=== PATIENT | male | born 1940 | race Caucasian/White ===

== ENCOUNTER 2019-02-03 02:52 | Inpatient (IN) | payer MEDICARE, OTHER ==
[2019-02-03] MEDS ORDERED: DILTIAZEM 125 MG in SODIUM CHLORIDE 0.9% 100 ML IV SCH (04:30)
[2019-02-03] MEDS ORDERED: SODIUM CHLORIDE 0.9% 100 ML BAG ONE (04:30)
[2019-02-03] MEDS ORDERED: HEPARIN SODIUM,PORCINE 5,000 UNIT/ML 1 ML VIAL ONE (04:30)
[2019-02-03] MEDS ORDERED: DILTIAZEM 125 MG/25 ML VIAL IV ONE (04:30)
[2019-02-03] MEDS ORDERED: NALOXONE 0.4 MG/ML 1 ML VIAL IV PRN (06:44)
[2019-02-03] MEDS ORDERED: HEPARIN SODIUM,PORCINE 5,000 UNIT/ML 1 ML VIAL IV PRN (06:49)
[2019-02-03] MEDS ORDERED: HEPARIN SODIUM,PORCINE 5,000 UNIT/ML 1 ML VIAL IV ONE (06:49)
--- NOTE | 2019-02-03 06:52 | P.HPIM ---
History of Present Illness H&P Date: 02/03/19 The patient is a 78-year-old male with a PMH of hypertension and hyperlipidemia who presented to the ED as a transfer from [facility] for sudden onset of A. fib with RVR. The patient reports no prior history of A. fib and notes that yesterday when he woke up in the morning at around 7 AM, he noticed mild dizziness though didn't think much of it. He continued to have intermittent dizziness and palpitations throughout the day which then worsened closer to bedtime at which time he asked his retired RN to auscultate his chest, at which time they decided to activate EMS. Upon presentation at [facility], the patient was noted to be in A. fib with RVR at a rate of 144. He was subsequently started on Cardizem and heparin infusions and was transferred to [place] emergency room. At time of interview, the patient reported that his symptoms had resolved and he was free of active complaints. He denied chest pain, shortness of breath, nausea, vomiting, diaphoresis, or dizziness. He also denied abdominal pain, fever, chills, cough, or diarrhea. He underwent an extensive evaluation in the emergency room with an EKG which revealed A. fib at 72 bpm. Laboratory evaluation revealed a WBC count of 11.7, hemoglobin of 15.2, sodium 140, potassium 4.1, urine 18, creatinine 0.82, troponin less than 0.012, BNP 132, TSH 1.83, free T4 1 0.07, alkaline phosphatase 83, CK 175, and AST 24. The patient is being admitted to the medical service for management of newly diagnosed Afib with RVR. Review of Systems Pertinent positives and negatives as discussed in HPI, a complete review of systems was performed and all other systems are negative. Past Medical History Past Medical History: Hyperlipidemia, Hypertension Medications and Allergies Home Medications Medication Instructions Recorded Confirmed Type Cholecalciferol [Vitamin D3 (25 1,000 unit PO DAILY 02/03/19 02/03/19 History Mcg = 1000 Iu)] Metoprolol Tartrate 12.5 mg PO BID 02/03/19 02/03/19 History Rosuvastatin [Crestor] 10 mg PO HS 02/03/19 02/03/19 History Ubidecarenone [Co Q-10] 100 mg PO DAILY 02/03/19 02/03/19 History amLODIPine [Norvasc] 5 mg PO DAILY 02/03/19 02/03/19 History Allergies Allergy/AdvReac Type Severity Reaction Status Date / Time No Known Allergies Allergy Verified 02/03/19 07:36 Physical Exam Vitals: Intake and Output 02/02/19 02/02/19 02/03/19 14:59 22:59 06:59 Other: Weight 80.286 kg General: non toxic, no distress, appears at stated age, overweight Derm: no unusual rashes/lesions no unusual ecchymoses, warm, dry Head: atraumatic, normocephalic, symmetric Eyes: EOMI, no lid lag, anicteric sclera, pupils equal round reactive to light ENT: Nose and ears atraumatic, no thrush, no pharyngeal erythema Neck: No thyromegaly, no cervical lymphadenopathy, trachea midline, supple Mouth: no lip lesion, mucus membranes moist Cardiovascular: Irregularly irregular, S1-S2 appreciated, no murmur, positive posterior tibial pulse bilateral, no edema, capillary refill less than 2 seconds Lungs: CTA bilateral, no rhonchi, no rales , no accessory muscle use Abdominal: soft, nontender to palpation, no guarding, no appreciable organomegaly, normal bowel sounds Ext: no gross muscle atrophy, muscle strength 5 out of 5 in all 4 extremities grossly, no contractures, Neuro: CN II-XI grossly intact, light touch intact all 4 extremities, finger to nose within normal limits, Psych: Alert, oriented, appropriate affect Assessment and Plan Plan: New-onset A. fib with RVR -Currently rate controlled with Cardizem infusion -Start patient on Lopressor -Continue with heparin infusion -Cardiac monitoring -Cardiology consult -Echocardiogram Chronic conditions: HTN, HLD -C/w home meds DVT prophylaxis -Heparin infusion The patient is admitted with an anticipated greater than 2 midnight stay for evaluation of Afib with rvr CODE STATUS: Full Code Discussed with: Patient Anticipated discharge date: 2-[address]: Home A total of 40 minutes was spent on the care of this complex patient more than 50% of the time was spent in counseling and care coordination.
[2019-02-03] MEDS ORDERED: HEPARIN SOD,PORK IN 0.45% NACL 25,000 UNIT in 0.45% NACL 1 250ML.BAG IV SCH (07:00)
[2019-02-03 08:50] LABS: ALT 33 U/L (21-72); AST 24 U/L (17-59); African American GFR (CKD) >90 (>60 ml/min/1.73 sqM); Albumin 4.1 g/dL (3.5-5.0); Alkaline Phosphatase 83 U/L (38-126); Anion Gap 6 mmol/L; Blood Urea Nitrogen 18 mg/dL (9-20); Calcium 9.3 mg/dL (8.4-10.2); Carbon Dioxide 27 mmol/L (22-30); Chloride 107 mmol/L (98-107); Creatine Kinase 175 U/L (55-170); Glucose 108 mg/dL (74-99); Magnesium 2.2 mg/dL (1.6-2.3); Non-African American GFR(CKD) 84 (>60 ml/min/1.73 sqM); Potassium 4.1 mmol/L (3.5-5.1); Sodium 140 mmol/L (137-145); T4, Free (Free Thyroxine) 1.07 ng/dL (0.78-2.19); Total Bilirubin 0.4 mg/dL (0.2-1.3)
[2019-02-03 08:56] LABS: INR 0.9 (<1.2); Partial Thromboplastin Time 31.3 sec (22.0-30.0); Prothrombin Time 9.9 sec (9.0-12.0)
[2019-02-03 09:20] LABS: Basophils # (A) 0.1 k/uL (0-0.2); Basophils % (A) 1 %; Eosinophils # (A) 0.3 k/uL (0-0.7); Eosinophils % (A) 2 %; HGB 15.2 gm/dL (13.0-17.5); Lymphocytes # (A) 4.8 k/uL (1.0-4.8); Lymphocytes % (A) 41 %; MCH 31.9 pg (25.0-35.0); MCHC 33.9 g/dL (31.0-37.0); MCV 94.1 fL (80.0-100.0); Mean Platelet Volume 6.1; Monocytes # (A) 0.6 k/uL (0-1.0); Monocytes % (A) 5 %; Neutrophils # (A) 5.5 k/uL (1.3-7.7); Neutrophils % (A) 47 %; Platelet Count 261 k/uL (150-450); RBC 4.78 m/uL (4.30-5.90); RDW 12.8 % (11.5-15.5); WBC 11.7 k/uL (3.8-10.6)
[2019-02-03] MEDS: METOPROLOL TARTRATE 25 MG TAB PO SCH ×2 (09:30→20:11)
--- NOTE | 2019-02-03 10:12 | ECHOF ---
Referral Reason:Afib with RVR MEASUREMENTS -------- HEIGHT: 172.7 cm WEIGHT: 80.3 kg BP: RVIDd: 3.0 cm (< 3.3) IVSd: 1.4 cm (0.6 - 1.1) LVIDd: 4.1 cm (3.9 - 5.3) LVPWd: 1.4 cm (0.6 - 1.1) IVSs: 1.7 cm LVIDs: 3.0 cm LVPWs: 2.0 cm LA Diam: 3.4 cm (2.7 - 3.8) LAESV Index (A-L): 26.35 ml/m Ao Diam: 3.1 cm (2.0 - 3.7) AV Cusp: 1.9 cm (1.5 - 2.6) LA Diam: 3.9 cm (2.7 - 3.8) MV EXCURSION: 22.213 mm (> 18.000) MV EF SLOPE: 105 mm/s (70 - 150) EPSS: 0.6 cm MV E Esteban: 0.78 m/s MV DecT: 135 ms MV A Esteban: 0.01 m/s MV E/A Ratio: 133.89 RAP: 5.00 mmHg RVSP: 13.33 mmHg TAPSE: 19.13 mm FINDINGS -------- Atrial fibrillation. This was a technically good study. The left ventricular size is normal. There is moderate concentric left ventricular hypertrophy. O verall left ventricular systolic function is normal with, an EF between 55 - 60 %. Left ventricular fillimg pressure cannot be estimated due to Atrial fibrillation. The right ventricle is normal in size. The left atrial size is normal. The right atrial size is normal. The aortic valve is trileaflet, and appears structurally normal. No aortic stenosis or regurgitation. Mild mitral regurgitation is present. Mild tricuspid regurgitation present. Right ventricular systolic pressure is normal at < 35 mmHg. There is no evidence of pulmonary hypertension. There is no pulmonic regurgitation present. The aortic root size is normal. There is no pericardial effusion. CONCLUSIONS -------- 1. Atrial fibrillation. 2. This was a technically good study. 3. The left ventricular size is normal. 4. There is moderate concentric left ventricular hypertrophy. 5. Overall left ventricular systolic function is normal with, an EF between 55 - 60 %. 6. Left ventricular fillimg pressure cannot be estimated due to Atrial fibrillation. 7. The right ventricle is normal in size. 8. The left atrial size is normal. 9. The right atrial size is normal. 10. The aortic valve is trileaflet, and appears structurally normal. No aortic stenosis or regurgitat ion. 11. Mild mitral regurgitation is present. 12. Mild tricuspid regurgitation present. 13. Right ventricular systolic pressure is normal at < 35 mmHg. 14. There is no evidence of pulmonary hypertension. 15. There is no pulmonic regurgitation present. 16. The aortic root size is normal. 17. There is no pericardial effusion. STRUCTURAL METAL WORKER: Eleanor Perdomo RDCS
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
[2019-02-03] MEDS: APIXABAN 5 MG TAB PO SCH ×2 (11:27→20:10)
--- NOTE | 2019-02-03 18:27 | P.PN ---
Progress Note - Text Progress Note Date: 02/03/19 (Delayed charting seen at 10:15) Hospitalist Interval Note Patient seen and examined at bedside. He reports that he is feeling much better. No more dizziness or shortness of breath. No chest pain. Discussed risks versus benefits of long-term anticoagulation and need for medications. He is in agreement. We also discussed his chadsvas Scor 2., Vital signs reviewed General: no distress, appears at stated age Derm: warm, dry Head: atraumatic, normocephalic, symmetric Eyes: EOMI, no lid lag, anicteric sclera Mouth: no lip lesion, mucus membranes moist Cardiovascular: S1S2 irreg, no murmur, positive posterior tibial pulse bilateral, Lungs: CTA bilateral, no rhonchi, no rales , no accessory muscle use Abdominal: soft, nontender to palpation, no guarding, no appreciable organomegaly Ext: no gross muscle atrophy, no edema, no contractures Neuro: CN II-XI grossly intact, no focal neuro deficits Psych: Alert, oriented, appropriate affect Assessment/Plan: Onset A. fib with rapid ventricular response -Discussed with nursing transitioned off of Cardizem drip, has been started on Lopressor already and received first dose -Transition off heparin drip and start Eliquis -Cardiology recommendations appreciated -Echocardiogram with ejection fraction 55-60%, moderate LVH -We'll need outpatient obstructive sleep apnea evaluation. Per snores significantly. Hypertension -controlled -Continue with Lopressor -Hold Norvasc -Follow blood pressures Dyslipidemia -Resume statin This is an update note for patient , for full note on 02/03 see H and P . There is no charge associated with this note.
[2019-02-03] MEDS ORDERED: ATORVASTATIN 20 MG TAB PO SCH (21:00)
[2019-02-04 06:28] LABS: Basophils # (A) 0.1 k/uL (0-0.2); Basophils % (A) 1 %; Eosinophils # (A) 0.3 k/uL (0-0.7); Eosinophils % (A) 2 %; HCT 45.1 % (39.0-53.0); HGB 14.9 gm/dL (13.0-17.5); Lymphocytes # (A) 3.2 k/uL (1.0-4.8); Lymphocytes % (A) 29 %; MCH 31.6 pg (25.0-35.0); MCV 95.6 fL (80.0-100.0); Mean Platelet Volume 6.8; Monocytes # (A) 0.7 k/uL (0-1.0); Monocytes % (A) 6 %; Neutrophils # (A) 6.7 k/uL (1.3-7.7); Neutrophils % (A) 59 %; Platelet Count 258 k/uL (150-450); RBC 4.71 m/uL (4.30-5.90); RDW 12.7 % (11.5-15.5); WBC 11.3 k/uL (3.8-10.6)
[2019-02-04] MEDS: APIXABAN 5 MG TAB PO SCH (08:09)
[2019-02-04] MEDS: METOPROLOL TARTRATE 25 MG TAB PO SCH (08:09)
[2019-02-04 08:14] VITALS: BP 142/92; PULSE 69; RESP 18; TEMP 96.4
[2019-02-04] MEDS ORDERED: amLODIPine 5 MG TAB PO SCH (10:00)
--- NOTE | 2019-02-04 10:11 | PN ---
PROGRESS NOTE Mr. Hatch is a 78-year-old male with no prior documented history of coronary artery disease who presented with symptoms of palpitation and dizziness, was noted to be in atrial fibrillation. He is back in sinus mechanism at this time. He is feeling better. His breathing is stable. He denies any dizziness. No palpitation. He denies any nausea. He had underwent an echocardiogram revealed preserved left ventricular size and systolic function with mild mitral and tricuspid regurgitation and no evidence of pulmonary hypertension. He continues to be at this time on Eliquis 5 mg twice a day, Lipitor 20 mg daily, metoprolol tartrate 25 mg twice a day. PHYSICAL EXAMINATION: Blood pressure 142/92 with the heart rate in the 60s. LUNGS: Clear. HEART: Regular rate and rhythm. S1, S2. No S3. No rub. ABDOMEN: Soft, nontender. EXTREMITIES: No edema. LAB DATA: Lab data revealed a troponin less than 0.012. TSH and free T4 normal. IMPRESSION: 1. Paroxysmal atrial fibrillation, back in normal sinus rhythm. 2. Hyperlipidemia. 3. Hypertension. RECOMMENDATION: Patient should be able to be discharged home today and he will follow as an outpatient to see if he has any further episode of atrial fibrillation. I have discussed those findings with the patient and his . I have discussed with him the importance of decreasing his caffeine and alcohol intake and he will discuss the issue of obstructive sleep apnea with Dr. Rodriguez as an outpatient. MMODL / IJN: [id number] /
--- NOTE | 2019-02-04 10:41 | P.DS ---
Providers Date of admission: 02/03/19 03:20 Expected date of discharge: 02/04/19 Attending physician: Swetha Kruger MD Consults: 02/03/19 06:46 Consult Physician Routine Consulting Provider: Mario Alberto Junior Consult Reason/Comments: Afib with Rvr Do you want consulting provider notified?: Yes Primary care physician: Harshil Rodriguez Hospital Course: Discharge Diagnosis: New onset paroxysmal A. Fib, now back in normal sinus rhythm Possible KIKO HTN HLD Elevated troponin, lab abnormality not reflective of [place] Hospital Course: Patient is a 78-year-old male past medical history of hypertension and dyslipidemia who initially presented to [facility] with complaints of dizziness and rapid heart rate. At [place] was found to be in A. fib with rapid ventricular response. He was started on a heparin drip and Cardizem infusions and was subsequently transferred [place] for cardiology evaluation. His metoprolol was restarted was able to come off Cardizem drip. He was seen by cardiology. He underwent an echocardiogram which showed preserved ejection fraction with moderate LVH. He converted back to normal sinus rhythm. His heparin drip was transitioned Eliquis. He was cleared by cardiology for discharge. He did have one mildly elevated troponin on arrival which was likely reflective of his atrial fibrillation and not consistent with acute coronary syndrome. He'll follow-up with Dr. Rodriguez in 1-2 days. I have also suggested an evaluation for sleep apnea patient does have snoring per his . Will also follow-up with Dr. Dolan in 2 weeks. Patient was initially admitted as inpatient but improved faster than anticipated. Patient seen and examined at bedside. No chest pain, shortness of breath, dizziness or palpitations. Vital signs reviewed and stable. General: non toxic, no distress, appears at stated age Derm: warm, dry Head: atraumatic, normocephalic, symmetric Eyes: EOMI, no lid lag, anicteric sclera Mouth: no lip lesion, mucus membranes moist Cardiovascular: S1S2 reg, no murmur, positive posterior tibial pulse bilateral, Lungs: CTA bilateral, no rhonchi, no rales , no accessory muscle use Ext: no gross muscle atrophy, no edema, no contractures Psych: Alert, oriented, appropriate affect A total of 25 minutes of time were spent preparing this complex discharge summary . Patient Condition at Discharge: Stable Plan - Discharge Summary Discharge Rx Participant: No New Discharge Prescriptions: New Apixaban [Eliquis] 5 mg PO BID #60 tab Continue amLODIPine [Norvasc] 5 mg PO DAILY Cholecalciferol [Vitamin D3 (25 Mcg = 1000 Iu)] 1,000 unit PO DAILY Rosuvastatin [Crestor] 10 mg PO HS Ubidecarenone [Co Q-10] 100 mg PO DAILY Metoprolol Tartrate [Lopressor] 25 mg PO BID Discharge Medication List Cholecalciferol [Vitamin D3 (25 Mcg = 1000 Iu)] 1,000 unit PO DAILY 02/03/19 [History] Metoprolol Tartrate [Lopressor] 25 mg PO BID 02/03/19 [History] Rosuvastatin [Crestor] 10 mg PO HS 02/03/19 [History] Ubidecarenone [Co Q-10] 100 mg PO DAILY 02/03/19 [History] amLODIPine [Norvasc] 5 mg PO DAILY 02/03/19 [History] Apixaban [Eliquis] 5 mg PO BID #60 tab 02/04/19 [Rx] Follow up Appointment(s)/Referral(s): Harshil Rodriguez MD [Primary Care Provider] - 1 Week Reyes Dolan MD [STAFF PHYSICIAN] - 2 Weeks Activity/Diet/Wound Care/Special Instructions: Activity: as tolerated Diet: heart healthy diet Special Instructions: Consider evaluation for sleep apnea with Dr. Rodriguez Decrease alcohol and caffeine exposure
== END 2019-02-04 12:14 | disposition home or self-care (01) | DRG 310 ==
LOC: EC 02:52 → 3SCARD 03:20
PROVIDERS: ADMIT Internal Medicine; ATTEND Internal Medicine
DX: I48.0 Paroxysmal atrial fibrillation (principal); E78.5 Hyperlipidemia, unspecified; H91.90 Unspecified hearing loss, unspecified ear; I10 Essential (primary) hypertension; M19.041 Primary osteoarthritis, right hand; M19.042 Primary osteoarthritis, left hand; Z79.01 Long term (current) use of anticoagulants; Z79.899 Other long term (current) drug therapy; Z82.49 Family history of ischemic heart disease and other diseases of the circulatory system; Z98.42 Cataract extraction status, left eye; Z98.41 Cataract extraction status, right eye; Z96.1 Presence of intraocular lens; G47.33 Obstructive sleep apnea (adult) (pediatric); R79.89 Other specified abnormal findings of blood chemistry
CPT/HCPCS: 80053; 82550; 83735; 83880; 84439; 84443; 84484; 85025; 85610; 85730; 93306; 94760; 96365; 96366; 99285

== ENCOUNTER 2019-02-16 19:13 | Inpatient (IN) | payer MEDICARE, OTHER ==
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
[2019-02-16] MEDS ORDERED: METOPROLOL TARTRATE 5 MG/5 ML VIAL IVP STA (21:04)
[2019-02-16] MEDS ORDERED: NITROGLYCERIN SL TABS 0.4 MG TAB SUBLINGUAL PRN (21:04)
[2019-02-16] MEDS: METOPROLOL TARTRATE 25 MG TAB PO SCH (21:55)
[2019-02-16] MEDS: SODIUM CHLORIDE 0.9% 1,000 ML IV SCH (21:59)
[2019-02-16] MEDS ORDERED: DEXTROSE 5% IN WATER 100 ML with AMIODARONE 150 MG IV ONE (22:30)
[2019-02-16] MEDS ORDERED: AMIODARONE 360 MG in DEXTROSE 5% IN WATER 200 ML IV ONE ×2 (22:30)
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
[2019-02-17] MEDS ORDERED: HEPARIN SOD,PORK IN 0.45% NACL 25,000 UNIT in 0.45% NACL 1 250ML.BAG IV SCH (01:15)
[2019-02-17] MEDS: SODIUM CHLORIDE 0.9% 1,000 ML IV SCH ×2 (06:12→17:38)
[2019-02-17 06:27] LABS: HCT 45.4 % (39.0-53.0); HGB 14.9 gm/dL (13.0-17.5); MCH 31.7 pg (25.0-35.0); MCHC 32.9 g/dL (31.0-37.0); MCV 96.3 fL (80.0-100.0); Mean Platelet Volume 7.9; Platelet Count 248 k/uL (150-450); RBC 4.71 m/uL (4.30-5.90); RDW 12.9 % (11.5-15.5); WBC 11.8 k/uL (3.8-10.6)
[2019-02-17 06:36] LABS: African American GFR (CKD) >90 (>60 ml/min/1.73 sqM); Anion Gap 9 mmol/L; Blood Urea Nitrogen 11 mg/dL (9-20); Calcium 9.1 mg/dL (8.4-10.2); Carbon Dioxide 25 mmol/L (22-30); Chloride 106 mmol/L (98-107); Glucose 102 mg/dL (74-99); Non-African American GFR(CKD) >90 (>60 ml/min/1.73 sqM); Sodium 140 mmol/L (137-145)
[2019-02-17] MEDS ORDERED: AMIODARONE 300 MG in DEXTROSE 5% IN WATER 250 ML IV SCH ×2 (08:00)
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
[2019-02-17] MEDS: amLODIPine 5 MG TAB PO SCH (08:39)
[2019-02-17] MEDS: METOPROLOL TARTRATE 25 MG TAB PO SCH ×2 (08:44→20:48)
[2019-02-17] MEDS ORDERED: ASPIRIN 325 MG TAB PO SCH (09:00)
[2019-02-17] MEDS ORDERED: APIXABAN 5 MG TAB PO SCH (09:00)
[2019-02-17] MEDS ORDERED: ALPRAZolam 0.25 MG TAB PO PRN (09:48)
[2019-02-17] MEDS ORDERED: ATORVASTATIN 80 MG TAB PO STA (09:48)
[2019-02-17] MEDS ORDERED: NITROGLYCERIN SL TABS 0.4 MG TAB SUBLINGUAL PRN (09:48)
[2019-02-17] MEDS ORDERED: ASPIRIN 325 MG TAB PO STA (09:48)
[2019-02-17] MEDS ORDERED: SODIUM CHLORIDE 0.9% 1,000 ML in EMPTY BAG 1 BAG IV ONE (09:48)
[2019-02-17] MEDS ORDERED: ALPRAZolam 0.5 MG TAB PO PRN (09:48)
[2019-02-17 10:51] LABS: Cholesterol 134 mg/dL (<200); HDL Cholesterol 33 mg/dL (40-60); LDL Cholesterol,Calculated 77 mg/dL (0-99); Triglycerides 118 mg/dL (<150)
[2019-02-17] MEDS ORDERED: HEPARIN SODIUM 1,000 UN/ML (10ML VL) ONE (12:55)
[2019-02-17] MEDS ORDERED: VERAPAMIL 2.5 MG/ML 2 ML AMP ONE (12:55)
[2019-02-17] MEDS ORDERED: LIDOCAINE 1% INJ 10MG/ML (20 ML MDV) ONE (12:55)
[2019-02-17] MEDS ORDERED: fentaNYL (PF) 50 MCG/ML 2 ML AMP ONE (12:55)
[2019-02-17] MEDS ORDERED: SODIUM CHLORIDE 0.9% 500 ML 500 ML IV ONE (13:00)
[2019-02-17] MEDS ORDERED: IV FLUID CONTINUATION 1,000 ML IV ONE (13:00)
[2019-02-17] MEDS ORDERED: fentaNYL (PF) 50 MCG/ML 2 ML AMP IV ONE (13:15)
[2019-02-17] MEDS ORDERED: LIDOCAINE 1% INJ 10MG/ML (20 ML MDV) SQ ONE (13:16)
[2019-02-17] MEDS ORDERED: VERAPAMIL SYRINGE (5 MG/10 ML) INTRAARTER ONE (13:17)
[2019-02-17] MEDS ORDERED: HEPARIN SODIUM 1,000 UN/ML (10ML VL) IV ONE (13:25)
[2019-02-17] MEDS ORDERED: IOPAMIDOL-370 125ML BTL INJ ONE (13:28)
[2019-02-17] MEDS ORDERED: RX INFO: IV CONTRAST WAS GIVEN 1 EACH MISC MISCELLANE PRN (13:37)
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
[2019-02-17] MEDS ORDERED: SODIUM CHLORIDE 0.9% 1,000 ML IV SCH (13:45)
--- NOTE | 2019-02-17 14:47 | P.PRLE ---
RE: Jhonatan Hatch Dear Harshil Jhonatan was admitted with SVT with left bundle branch block aberrancy This was adenosine sensitive I will schedule him for an EP study and possible radiofrequency ablation Thank you for entrusting me with the care of the patient Warm regards Sincerely Marino Gastelum
--- NOTE | 2019-02-17 15:53 | P.PN ---
Subjective Progress Note Date: 02/17/19 Principal diagnosis: Ventricular tachycardia Patient was seen and examined. No acute events overnight. He denies any chest pain, shortness of breath or palpitations. Just came back from cardiac catheterization. No nausea or vomiting. No fever or chills. Objective - Vital Signs Vital signs: Vital Signs Temp 97.6 F 02/17/19 04:00 Pulse 53 L 02/17/19 04:00 Resp 18 02/17/19 04:00 BP 155/78 02/17/19 04:00 Pulse Ox 95 02/17/19 04:00 Intake & Output 02/16/19 02/17/19 02/17/19 18:59 06:59 18:59 Intake Total 849.615 Balance 849.615 Weight 82.2 kg Intake: Intake, IV Titration 849.615 Amount Heparin Sod,Pork in 0.45% 49.615 NaCl 25,000 unit In 0.45 % NaCl 1 250ml.bag @ 12 UNITS/KG/HR 9.634 mls/hr IV .Q24H [facility] Rx#: [id number] Sodium Chloride 0.9% 1, 800 000 ml @ 100 mls/hr IV . Q10H [facility] Rx#:[id number] Other: Voiding Method Toilet # Voids 2 - Exam General: [non toxic], [no distress], [appears at stated age] Derm: [warm], [dry] Head: [atraumatic], [normocephalic], [symmetric] Eyes: [EOMI], [no lid lag], [anicteric sclera] Mouth: [no lip lesion], [mucus membranes moist] Cardiovascular: [S1S2 reg], [no murmur], [positive DP pulse bilateral], Lungs: [CTA bilateral], [no rhonchi, no rales] , [no accessory muscle use] Abdominal: [soft], [ nontender to palpation], [no guarding], [no appreciable organomegaly] Ext: [no gross muscle atrophy], [no edema], [no contractures] Neuro: [ CN II-XI grossly intact], [no focal neuro deficits] Psych: [Alert], [oriented], [appropriate affect] - Labs CBC & Chem 7: 02/17/19 05:29 02/17/19 05:29 Labs: Abnormal Lab Results - Last 24 Hours (Table) 02/16/19 02/17/19 02/17/19 Range/Units 23:50 05:29 05:29 WBC (3.8-10.6) k/uL APTT (22.0-30.0) sec Creatinine (0.66-1.25) mg/dL Glucose (74-99) mg/dL Troponin I 0.918 H* 0.590 H* (0.000-0.034) ng/mL HDL Cholesterol 33 L (40-60) mg/dL 02/17/19 02/17/19 02/17/19 Range/Units 05:29 05:29 05:29 WBC 11.8 H (3.8-10.6) k/uL APTT 37.7 H (22.0-30.0) sec Creatinine 0.63 L (0.66-1.25) mg/dL Glucose 102 H (74-99) mg/dL Troponin I (0.000-0.034) ng/mL HDL Cholesterol (40-60) mg/dL Assessment and Plan Assessment: Assessment and Plan Wide complex tachycardia, likely ventricular tachycardia with chest pain and near syncope Troponin elevation Paroxysmal atrial fibrillation Leukocytosis Hypertension Dyslipidemia As seen on EKG from [facility]. EKG here shows normal sinus rhythm. Plans: Started on amiodarone drip by cardiology. Continue metoprolol by mouth. Telemetry monitoring. Follow cardiology recommendations, will possibly require cardiac catheterization. Troponin 0.918, 0.590 with EKG showing normal sinus rhythm. Likely due to demand ischemia. Plans: Trend troponin/EKG to rule out ACS. Continue heparin drip. Continue aspirin and Lipitor. Continue beta wicho. Management as above. Plans: Continue metoprolol. Patient currently on amiodarone drip. Eliquis on hold currently on heparin drip. Management as above. Likely stress-induced. No signs of infection. Patient afebrile. Plans: Continue to monitor. BP 155/78. Plans: Continue amlodipine and metoprolol. Monitor vitals, adjust medications as necessary. Plans: Continue Lipitor. [Patient admitted for possible ventricular tachycardia. Records requested from [facility]. Cardiology on board. Likely DC in 1-2 days.]
--- NOTE | 2019-02-17 16:30 | CC ---
CARDIAC CATHETERIZATION REPORT Mr. Hatch is a 78-year-old male with known history of hyperlipidemia who recently presented with atrial fibrillation that converted spontaneously to sinus mechanism. Yesterday had an episode of palpitation with dizziness and chest discomfort. He was noted to be in wide-complex tachycardia, most likely aberrancy, but he had minimal troponin elevation. In view of that, recommendation made regarding cardiac catheterization. The procedure as well as risks and complications were discussed with the patient who is in full understanding and agreement. DESCRIPTION OF PROCEDURE: Patient was brought to hoisting laborer in a fasting state after receiving fentanyl and Benadryl and achieving moderate conscious sedated state, using Xylocaine anesthesia and Seldinger technique, a 6-Jordanian sheath was introduced in the right radial artery. Selective right and left coronary angiography performed using 5-Jordanian 3 and half bend. Right and left Robbin catheter, multiple views of the coronary arteries including hemiaxial views obtained. Following that 5-Jordanian tight pigtail catheter was introduced into the left ventricle and pressures were calculated. Following that, catheter and sheath were removed. Hemostasis was obtained with deployment of a TR band. There was no immediate complication. Patient was returned to his room in stable condition. Of note, the patient received 5000 units of intravenous heparin. FINDINGS: FLUOROSCOPY: There was calcification involving the proximal LAD. LEFT MAIN: This is a large-sized vessel bifurcating into left circumflex, left anterior descending artery, left main coronary artery has no evidence of high- grade stenosis. LEFT ANTERIOR DESCENDING ARTERY: This is a large-sized vessel reaching toward the apex with a wraparound apex segment giving rise to a large diagonal branch. The left anterior descending artery is calcified proximally. Following the takeoff of the diagonal branch, there is a 20% plaque. There is also a mild plaque of 20% in the proximal diagonal branch. The mid LAD has a 40% to 50%. plaque. The rest of the vessel has no high-grade stenosis. LEFT CIRCUMFLEX: This is a nondominant large size vessel giving rise to 2 obtuse marginal branches. The left circumflex as well as branches have no evidence of obstructive coronary artery disease. RIGHT CORONARY ARTERY: This is a dominant vessel, large in caliber bifurcating distally into PDA and posterolateral segment and branches. The right coronary artery as well as branches have no evidence of obstructive coronary artery disease. LEFT VENTRICULOGRAM: Left ventriculogram is not performed. HEMODYNAMICS: There was no gradient across the aortic valve. The left ventricle end-diastolic pressure was 20-24 mmHg. CONCLUSION: 1. Calcified proximal left anterior descending coronary artery with mild disease proximally and moderate disease in the mid LAD. 2. Normal left circumflex and right coronary artery. RECOMMENDATIONS: In view of findings and anatomy, I have recommended continued medical therapy with aggressive coronary risk modifications that have been initiated. Those findings and recommendations were discussed with the patient and his family who are in full understanding and agreement. He will be evaluated by Dr. Gastelum regarding his arrhythmia for possible ablation. Duration of procedure: 17 minutes. MMODL / IJN: [id number] / MTDD
--- NOTE | 2019-02-17 16:33 | LTR ---
DATE OF SERVICE: 02/16/[address] Rodriguez: I had the pleasure of performing cardiac catheterization on Mr. Hatch at [facility] on the 17 of February. A full copy of procedure note will be forwarded to you. In brief, he was found to have mild to moderate disease in the LAD without any evidence of high-grade stenosis. Based on those findings, I have recommended continued medical therapy and he will be evaluated for possible ablation of his arrhythmia. I will keep you updated on his progress. Thank you again for allowing me to participate in his care. Please feel free to call for any questions. Sincerely, MMODL / IJN: [id number] /
[2019-02-17] MEDS ORDERED: ATORVASTATIN 20 MG TAB PO SCH (21:00)
[2019-02-18] MEDS: SODIUM CHLORIDE 0.9% 1,000 ML IV SCH (02:05)
[2019-02-18 06:02] LABS: HCT 46.9 % (39.0-53.0); HGB 15.3 gm/dL (13.0-17.5); MCH 31.4 pg (25.0-35.0); MCHC 32.6 g/dL (31.0-37.0); MCV 96.1 fL (80.0-100.0); Mean Platelet Volume 7.2; Platelet Count 233 k/uL (150-450); RBC 4.88 m/uL (4.30-5.90); RDW 12.8 % (11.5-15.5); WBC 11.6 k/uL (3.8-10.6)
[2019-02-18 06:14] LABS: African American GFR (CKD) >90 (>60 ml/min/1.73 sqM); Anion Gap 8 mmol/L; Blood Urea Nitrogen 14 mg/dL (9-20); Calcium 9.6 mg/dL (8.4-10.2); Carbon Dioxide 28 mmol/L (22-30); Chloride 105 mmol/L (98-107); Glucose 128 mg/dL (74-99); Non-African American GFR(CKD) 85 (>60 ml/min/1.73 sqM); Potassium 4.1 mmol/L (3.5-5.1); Sodium 141 mmol/L (137-145)
[2019-02-18] MEDS ORDERED: ASPIRIN 81 MG PO SCH (09:00)
[2019-02-18] MEDS ORDERED: APIXABAN 5 MG TAB PO SCH (09:00)
[2019-02-18] MEDS: amLODIPine 5 MG TAB PO SCH (09:08)
[2019-02-18] MEDS: METOPROLOL TARTRATE 25 MG TAB PO SCH (09:08)
--- NOTE | 2019-02-18 09:22 | P.DS ---
Providers Date of admission: 02/16/19 21:04 Expected date of discharge: 02/18/19 Attending physician: Vanesa Burnette MD Consults: 02/16/19 21:04 Consult Physician Urgent Consulting Provider: Reyes Dolan Consult Reason/Comments: known Do you want consulting provider notified?: Yes Primary care physician: [facility] Hospital Course: 78-year-old male with recent diagnosis paroxysmal atrial fibrillation on October, hypertension, dyslipidemia who presented to the ED for sudden onset chest pain, shortness of breath and lightheadedness. had noticed that the patient's h eart was racing. He was taken to [facility] ED. His chest pain and symptoms resolved while in the ED at [facility]. Patient was believed to be in SVT and was given adenosine 6 mg 2 and 12 mg 1 after which he subsequently returned to sinus rhythm. EKG from [facility] however showed wide-complex tachycardia at 183 bpm. Subsequent EKG showed sinus rhythm at [address] depression in leads [address] elevation in lead aVR and V1. Patient was admitted for cardiology evaluation and to rule out acute coronary syndrome. He was initially started on amiodarone drip as recommended by cardiology for wide-complex tachycardia along with heparin drip. Electrophysiology was consulted and recommended discontinuation of amiodarone drip as patient was likely in SVT with left bundle branch block aberrancy that was adenosine sensitive. Electrophysiology recommended further EP studies and radiofrequency ablation in the outpatient setting. Patient was noted to have elevated troponins during his hospitalization. Troponin was 0.918, 0.590, 0.082 with EKG showing sinus rhythm, acute coronary syndrome was ruled out. Cardiac catheterization was performed during his hospitalization which showed proximal LAD calcified with mild disease proximally and moderate disease in the mid LAD with normal left circumflex and right coronary artery. Heparin drip was discontinued at this time and patient was resumed on Eliquis. Patient was seen and examined. No acute events overnight. States that he drinks 2 cups of coffee daily along with more decaf coffee. Patient denies any further chest pain, shortness of breath or palpitations. No nausea or vomiting. No fever or chills. General: non toxic, no distress, appears at stated age Derm: warm, dry Head: atraumatic, normocephalic, symmetric Eyes: EOMI, no lid lag, anicteric sclera Mouth: no lip lesion, mucus membranes moist Cardiovascular: S1S2 reg, no murmur, positive DP pulse bilateral, Lungs: CTA bilateral, no rhonchi, no rales , no accessory muscle use Abdominal: soft, nontender to palpation, no guarding, no appreciable organomegaly Ext: no gross muscle atrophy, no edema, no contractures Neuro: no focal neuro deficits Psych: Alert, oriented, appropriate affect Assessment and Plan SVT Troponin elevation Paroxysmal atrial fibrillation Leukocytosis Hypertension Dyslipidemia As seen on EKG from [facility]. EKG here shows normal sinus rhythm. Amiodarone drip discontinued by cardiology. Plans: Electrophysiology recommends EP study along with possible ablation in the outpatient setting. Continue metoprolol by mouth. Telemetry monitoring. Troponin 0.918, 0.590, 0.182 with EKG showing normal sinus rhythm. Likely due to demand ischemia. Plans: ACS ruled out. Continue aspirin and Lipitor. Continue beta wicho. Management as above. Plans: Continue metoprolol. Resume Eliquis. Management as above. Likely stress-induced. No signs of infection. Patient afebrile. Chest x-ray shows possible left lower lobe infiltrate but patient asymptomatic, no cough. Plans: Continue to monitor. BP 142/68. Plans: Continue amlodipine and metoprolol. Monitor vitals, adjust medications as necessary. Plans: Continue Lipitor. [Patient diagnosed with SVT. Need EP study and ablation probably in the outpatient setting. DC today with cardiology clearance and follow-up.] Pertinent Studies: Echocardiogram Procedures: Cardiac catheterization Patient Condition at Discharge: Stable Plan - Discharge Summary Discharge Rx Participant: No New Discharge Prescriptions: Continue amLODIPine [Norvasc] 5 mg PO DAILY Cholecalciferol [Vitamin D3 (25 Mcg = 1000 Iu)] 2,000 unit PO DAILY Rosuvastatin [Crestor] 10 mg PO HS Ubidecarenone [Co Q-10] 200 mg PO DAILY Metoprolol Tartrate [Lopressor] 25 mg PO BID Apixaban [Eliquis] 5 mg PO BID #60 tab Discharge Medication List Cholecalciferol [Vitamin D3 (25 Mcg = 1000 Iu)] 2,000 unit PO DAILY 02/03/19 [History] Metoprolol Tartrate [Lopressor] 25 mg PO BID 02/03/19 [History] Rosuvastatin [Crestor] 10 mg PO HS 02/03/19 [History] Ubidecarenone [Co Q-10] 200 mg PO DAILY 02/03/19 [History] amLODIPine [Norvasc] 5 mg PO DAILY 02/03/19 [History] Apixaban [Eliquis] 5 mg PO BID #60 tab 02/04/19 [Rx] Follow up Appointment(s)/Referral(s): Harshil Rodriguez MD [Primary Care Provider] - 1-2 days Reyes Dolan MD [STAFF PHYSICIAN] - 02/25/19 2:15 pm (Saturday) Marino Gastelum MD [STAFF PHYSICIAN] - 1 Week Patient Instructions/Handouts: After Radial Heart Catheterization (GEN) Activity/Diet/Wound Care/Special Instructions: Diet: Cardiac low caffeine Follow-up PCP within 3 days of discharge. Follow-up cardiology within 1 week of discharge. Please follow-up with electrophysiology for your scheduled EP study along with possible ablation. Come back to the ED or call 911 for chest pain, dizziness, shortness of breath or palpitations. Discharge Disposition: HOME SELF-CARE
[2019-02-18 09:50] VITALS: BP 131/68; PULSE 58; RESP 20; TEMP 97.8
--- NOTE | 2019-02-18 09:54 | ECHOF ---
Referral Reason:limited assess lvf MEASUREMENTS -------- HEIGHT: 172.7 cm WEIGHT: 82.1 kg BP: 155/78 FINDINGS -------- Echo Done 02/03/19: Limited Study for LV Function. Overall left ventricular systolic function is low-normal with, an EF between 50 - 55 %. CONCLUSIONS -------- 1. Echo Done 02/03/19: Limited Study for LV Function. 2. Overall left ventricular systolic function is low-normal with, an EF between 50 - 55 %. ELECTRONIC PREPRESS OPERATOR: Eleanor Perdomo RDCS
--- NOTE | 2019-02-18 15:35 | P.PN ---
Subjective Progress Note Date: 02/18/19 This is a pleasant 78-year-old gentleman who follows with Dr. Rodriguez as his primary care doctor, he was recently in the hospital at the end of January, diagnosed with atrial fibrillation. He has a history of hypertension, hyperlipidemia, rare EtOH, history of trigeminal neuralgia. According to the patient, he stated that he underwent a cardiac catheterization 6 or 7 years ago which revealed normal coronary arteries at that time. Patient had done well since his discharge from here, prior to going to [facility] he states that he developed severe midsternal chest pressure with radiation into his left arm, and into his jaw he became quite short of breath and diaphoretic. Patient states at that time he also felt his heart racing fast, he went to [facility]. His blood pressure on arrival to [facility] was 136/90 his heart rate 184 he was afebrile chest x-ray showed mild interstitial left lower lobe infiltrate increase as compared with prior exam. Laboratory data was revi ewed there, white blood cell count 12.8, hemoglobin 15, platelet count 267. Sodium 140, potassium 4.1, chloride 102, CO2 28, BUN 20, creatinine 0.9, magnesium 2.2, troponin 0.012. We do not have a copy of the EKG on presentation to [facility], apparently the patient was found to be in what looked like ventricular tachycardia, he was given adenosine 6 mg then 12 mg, subsequent EKG showed normal sinus rhythm with ST-T wave changes noted in the inferior leads. We will attempt to retrieve the records of the EKG and rhythm strips from [facility]. EKG performed on arrival here shows normal sinus rhythm with no acute changes. Currently the patient is in normal sinus rhythm, blood pressure 150/70 with a heart rate in the 50s, 95% on room air. White blood cell count 11.8, hemoglobin 14.9, platelet count 248. Sodium 140, potassium 4.0, BUN 11, creatinine 0.6. Initial troponin here 0.91, 0.59. On arrival here the patient was initiated on IV amiodarone, unfortunately he was given an IV bolus of amiodarone, and initiated on the 1 mg, and then the drip was discontinued. He currently is non-on any amiodarone at this time. The patient is currently on IV heparin. We will decrease the aspirin to 81 mg daily. Continue the metoprolol, and reinitiate the amiodarone at 0.5. 02/18/2019 Patient underwent a cardiac catheterization yesterday which did not reveal any obstructive coronary artery disease. He was also seen in consultation by Dr. Gastelum, who reviewed EKGs and felt that the patient had SVT with left bundle branch block aberrancy which was adenosine sensitive. Patient will be scheduled for an EP study and possible radiofrequency ablation as an outpatient. He was seen and examined today, feels well denies any chest pain, no arrhythmias were noted on the monitor. Objective - Vital Signs Vital signs: Vital Signs Temp 97.8 F 02/18/19 08:00 Pulse 58 L 02/18/19 08:00 Resp 20 02/18/19 08:00 BP 131/68 02/18/19 08:00 Pulse Ox 97 02/18/19 08:00 Intake & Output 02/17/19 02/18/19 02/18/19 18:59 06:59 18:59 Intake Total 150 600 240 Balance 150 600 240 Weight 80.7 kg Intake: IV 150 Oral 600 240 Other: Voiding Method Toilet # Voids 1 - Exam PHYSICAL EXAMINATION: GENERAL: 78-year-old gentleman in no acute distress at the time of my examination HEENT: Head is atraumatic, normocephalic. Pupils equal, round. Sclera anicteric. Conjunctiva are clear. Mucous membranes of the mouth are moist. Neck is supple. There is no elevated jugular venous pressure. No carotid bruit is heard. HEART EXAMINATION: Heart S1, S2 normal. No murmur or gallop heard. CHEST EXAMINATION: Lungs are clear to auscultation and precussion. No chest wall tenderness is noted on palpation or with deep breathing. ABDOMEN: Soft, nontender. Bowel sounds are heard. No organomegaly noted. EXTREMITIES: 2+ peripheral pulses with no evidence of peripheral edema and no calf tenderness noted. Right radial site clean and dry, good distal pulse. NEUROLOGIC patient is awake, alert and oriented 3 . - Labs CBC & Chem 7: 02/18/19 05:42 02/18/19 05:42 Labs: Abnormal Lab Results - Last 24 Hours (Table) 02/18/19 02/18/19 02/18/19 Range/Units 05:42 05:42 05:42 WBC 11.6 H (3.8-10.6) k/uL Glucose 128 H (74-99) mg/dL Troponin I 0.182 H* (0.000-0.034) ng/mL Assessment and Plan Plan: Assessment and plan #1 symptoms of chest pressure and heaviness with radiation to the left arm and jaw, associated diaphoresis, shortness of breath. Apparently initial EKG a [facility] showed ventricular tachycardia, we do have one rhythm strip supporting this, we will await records from [facility]. #2 paroxysmal atrial fibrillation #3 hypertension #4 hyperlipidemia #5 history of trigeminal neuralgia Plan Cardiac catheterization was performed which did not reveal any significantly obstructive coronary artery disease. EKGs reviewed by Dr. Coker who felt that the patient had a supraventricular tachycardia sensitive to adenosine. Patient may be able to be discharged home today from cardiology's perspective, we will make a follow-up appointment for him in the office with Dr. Dolan, he will also be scheduled for an outpatient EP study and possible radiofrequency ablation. DNP note has been reviewed, I agree with a documented findings and plan of care. Patient was seen and examined.
--- NOTE | 2019-02-23 07:53 | CDI ---
Documentation Clarification Form Date: 02/23/19 From: Chikis Balderrama Phone: If you have a question about this query, please contact Chani High, Illuminator at [phone] between 8am and 5pm. Admit Date: 02/16/19 Discharge Date:02/18/19 Patient Name: Jhonatan Hatch Visit Number: [id number] ATTENTION: The Clinical Documentation Specialists (CDI) and [facility] Coding Staff appreciate your assistance in clarifying documentation. Please respond to the clarification below the line at the bottom and electronically sign. The CDI & [facility] Coding staff will review the response and follow-up if needed. Please note: Queries are made part of the Legal Health Record. If you have any questions, please contact the author of this message via ITS. Dear Dr. Aung Estrella The patient presented with elevated troponin, wide-complex tachycardia, chest pain and near-syncope. Documentation in your 02/17 progress note and discharge summary: elevated troponins likely due to demand ischemia. History/Risk Factors: Paroxysmal atrial fibrillation, hypertension, hyperlipidemia Clinical Indicators: Elevated troponin, chest discomfort with radiation to the left arm, with associated shortness of breath and lightheadedness. Lab findings: Troponin 0.918, 0.590, 0.182 Radiology findings: Chest x-ray at [facility] - mild interstitial left lower lobe infiltrated increase as compared with prior exam. Vital Signs: T. 97.6, P. 68, R. 18, BP 145/73 Treatment: IV Amiodarone Consults: Dr. Gastelum consult note: Elevated troponins likely demand ischemia secondary to tachycardia, coronary angiogram showing mild to moderate CAD. In your professional opinion, can you please clarify the above findings? Demand Ischemia with type II PA Demand Ischemia without type II PA Other, please specify Unable to determine demand ischemia without type 2 mi MTDD
== END 2019-02-18 11:12 | disposition home or self-care (01) | DRG 287 ==
LOC: EC 19:13 → 3SCARD 21:04
PROVIDERS: ADMIT Internal Medicine; ATTEND Internal Medicine
PROC: 4A023N7 Measurement of Cardiac Sampling and Pressure, Left Heart, Percutaneous Approach (ICD-10-PCS; principal; 2019-02-16)
PROC: B2111ZZ Fluoroscopy of Multiple Coronary Arteries using Low Osmolar Contrast (ICD-10-PCS; 2019-02-16)
DX: I47.1 Supraventricular tachycardia (principal); I24.8 Other forms of acute ischemic heart disease; D72.829 Elevated white blood cell count, unspecified; E78.5 Hyperlipidemia, unspecified; H91.91 Unspecified hearing loss, right ear; I10 Essential (primary) hypertension; I25.10 Atherosclerotic heart disease of native coronary artery without angina pectoris; I25.84 Coronary atherosclerosis due to calcified coronary lesion; I44.7 Left bundle-branch block, unspecified; I48.0 Paroxysmal atrial fibrillation; M19.041 Primary osteoarthritis, right hand; M19.042 Primary osteoarthritis, left hand; H93.11 Tinnitus, right ear; R07.9 Chest pain, unspecified; Z79.01 Long term (current) use of anticoagulants; Z79.899 Other long term (current) drug therapy; Z87.01 Personal history of pneumonia (recurrent); Z98.42 Cataract extraction status, left eye; Z98.41 Cataract extraction status, right eye; Z96.1 Presence of intraocular lens; Z82.49 Family history of ischemic heart disease and other diseases of the circulatory system
CPT/HCPCS: 80048; 80061; 83735; 84484; 85027; 85730; 93306; 93458; 94760; 99291

== ENCOUNTER → 2019-05-05 | Outpatient (CLI) | payer MEDICARE, OTHER ==
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
== END | disposition home or self-care (01) ==
LOC: SLEEP 14:07
PROVIDERS: ATTEND Internal Medicine Critical Care Medicine
DX: G47.30 Sleep apnea, unspecified (principal); I48.0 Paroxysmal atrial fibrillation; E78.5 Hyperlipidemia, unspecified; I10 Essential (primary) hypertension; Z86.79 Personal history of other diseases of the circulatory system; Z98.890 Other specified postprocedural states; Z79.01 Long term (current) use of anticoagulants
CPT/HCPCS: 99211

== ENCOUNTER 2020-03-24 06:07 | Day surgery (SDC) | payer MEDICARE ==
[2020-03-18 11:43] VITALS: BMI 27.3
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
[~2020-03-24 06:07] MED LIST: DEXAMETHASONE SOD PHOSPHATE 4 MG/ML 1 ML VIAL IV ONE; LACTATED RINGERS 1,000 ML IV SCH; LIDOCAINE 1% (10MG/ML) FOR IV START INTRADERMA PRN; ONDANSETRON 4 MG/2 ML VIAL IVP ONE
[2020-03-24] MEDS ORDERED: HYDROmorphone 0.5 MG/0.5 ML SYRINGE IVP PRN (07:00)
[2020-03-24] MEDS ORDERED: LIDOCAINE 2% INJ 20 MG/ML SQ ONE ×2 (07:22)
[2020-03-24] MEDS ORDERED: MIDAZOLAM 2 MG/2 ML VIAL ONE (07:30)
[2020-03-24] MEDS ORDERED: LIDOCAINE 1% INJ 10MG/ML (20 ML MDV) ONE (07:30)
[2020-03-24] MEDS ORDERED: PROPOFOL 10 MG/ML 20 ML VIAL IV ONE (07:30)
[2020-03-24] MEDS ORDERED: KETAMINE 10 MG/ML 20 ML VIAL ONE (07:30)
[2020-03-24] MEDS ORDERED: GLYCOPYRROLATE 0.2 MG/ML 2 ML VIAL ONE (07:30)
[2020-03-24] MEDS ORDERED: fentaNYL (PF) 50 MCG/ML 2 ML AMP ONE (07:30)
--- NOTE | 2020-03-24 08:15 | P.OP ---
Date of Procedure: 03/24/20 Preoperative Diagnosis: Adenocarcinoma of the prostate Postoperative Diagnosis: Same Procedure(s) Performed: SpaceOAR Implant Anesthesia: MAC Surgeon: Hector Ware Estimated Blood Loss (ml): 10 IV fluids (ml): 600 Pathology: none sent Condition: stable Disposition: PACU Indications for Procedure: The patient is an 79-year-old white male who has been followed for an elevated PSA level. Prostate biopsies in 2007 were negative. He is no family history of prostate cancer. His PSA level in September 2018 was 5.2. However, his PSA level in September 2019 was 10.7, and subsequent PSA levels were 8.5 and 7.8. He underwent a prostate ultrasound 02/01/2020 revealing a prostate volume of 53 mL. 2 of 16 biopsies showed evidence of [place] 7 adenocarcinoma. Both positive biopsies were on the left side. The patient has elected to be treated with IMRT and has elected to undergo SpaceOAR implant prior to receiving radiation therapy to reduce the likelihood of radiation proctitis. Operative Findings: Greater than 1 cm separation created between prostate and rectum. Description of Procedure: The patient was taken to the operating room and placed in the dorsolithotomy position, with his legs supported in Issa stirrups. The external genitalia was prepped and draped sterilely. The Bruel and Kjaer transrectal ultrasound probe was placed intrarectally. The prostate was imaged. The probe was then placed within the stabilizing stand. A spinal needle was advanced under ultrasonic guidance to the level of the urogenital diaphragm, and lidocaine was used to infiltrate the tissues as the needle was withdrawn. Next, the SpaceOAR needle was passed through the midline of the perineum, 1-2 cm anterior to the anal opening. The needle was slowly advanced under ultrasonic guidance until the needle tip was located within the fat plane between the prostate and rectum, at the level of the mid prostate gland. The needle was confirmed to be midline on the axial imaging. A small amount of normal saline was injected for hydrodissection. Next, the SpaceOAR components were mixed and loaded into the Y connector per protocol. The Y connector was then connected to the needle, and the components were injected slowly over a course of approximately 12 seconds. A total of 10 ml was injected. Significant distance was created between the prostate and rectum, as desired. It should be noted that at no point was there any concern of rectal perforation. The needle was withdrawn, as well as the transrectal ultrasound probe, and the procedure was terminated. The patient tolerated the procedure well and was taken to the recovery room in stable condition.
[2020-03-24 08:28] VITALS: TEMP 98.8
[2020-03-24 09:05] VITALS: RESP 16
[2020-03-24 09:21] VITALS: BP 141/83; PULSE 55
== END 2020-03-24 09:45 | disposition home or self-care (01) ==
LOC: OR 06:07
PROVIDERS: ATTEND Urology
DX: C61 Malignant neoplasm of prostate (principal); I48.91 Unspecified atrial fibrillation; H91.90 Unspecified hearing loss, unspecified ear; E78.5 Hyperlipidemia, unspecified; I10 Essential (primary) hypertension; Z87.01 Personal history of pneumonia (recurrent); G50.0 Trigeminal neuralgia; H93.11 Tinnitus, right ear; G47.33 Obstructive sleep apnea (adult) (pediatric); Z98.890 Other specified postprocedural states; Z98.42 Cataract extraction status, left eye; Z98.41 Cataract extraction status, right eye; Z96.1 Presence of intraocular lens; I25.2 Old myocardial infarction; M19.042 Primary osteoarthritis, left hand; M19.041 Primary osteoarthritis, right hand; Z82.49 Family history of ischemic heart disease and other diseases of the circulatory system; Z79.01 Long term (current) use of anticoagulants; Z79.899 Other long term (current) drug therapy
CPT/HCPCS: 55874; J2001 ×2; J2250; J1100; J2405; J0690; J3010; J2704

== ENCOUNTER → 2020-06-14 | Outpatient (CLI) | payer MEDICARE | END | disposition home or self-care (01) | LOC: LABWHC1 09:05 | PROVIDERS: ATTEND Radiology Radiation Oncology | DX: C61 Malignant neoplasm of prostate (principal) | CPT/HCPCS: 36415; 84153 ==

== ENCOUNTER → 2020-10-27 | Outpatient (CLI) | payer MEDICARE, OTHER | END | disposition home or self-care (01) | LOC: LABWHC1 09:30 | PROVIDERS: ATTEND Radiology Radiation Oncology | DX: C61 Malignant neoplasm of prostate (principal) | CPT/HCPCS: 36415; 84153 ==

== ENCOUNTER → 2021-03-08 | Outpatient (CLI) | payer MEDICARE, OTHER | END | disposition home or self-care (01) | LOC: LABWHC1 08:24 | PROVIDERS: ATTEND Radiology Radiation Oncology | DX: C61 Malignant neoplasm of prostate (principal); Z92.3 Personal history of irradiation | CPT/HCPCS: 36415; 84153 ==

== ENCOUNTER → 2021-04-27 | Outpatient (CLI) | payer MEDICARE, OTHER ==
[2021-04-27 15:38] LABS: HGB 14.2 g/dL (13.0-17.0); MCH 31.2 pg (27.0-32.0); MCHC 31.6 g/dL (32.0-37.0); MCV 98.9 fL (80.0-97.0); Mean Platelet Volume 10.3 fL (9.5-12.2); NRBC Per 100 WBC 0 /100 WBCS (0.0-0.0); Platelet Count 256 X 10*3/uL (140-440); RBC 4.55 X 10*6/uL (4.40-5.60); RDW 13.2 % (11.5-14.5); WBC 7.81 X 10*3/uL (4.50-10.00)
[2021-04-27 15:41] LABS: ALT 14 U/L (10-49); AST 22 U/L (14-35); African American GFR (CKD) 97.1 (60.0-200.0); Albumin 4.5 g/dL (3.8-4.9); Albumin/Globulin Ratio 1.45 (1.60-3.17); Alkaline Phosphatase 77 U/L (41-126); BUN/Creat Ratio 20.38 Ratio (12.00-20.00); Blood Urea Nitrogen 16.3 mg/dL (9.0-27.0); Calcium 9.8 mg/dL (8.7-10.3); Carbon Dioxide 26.2 mmol/L (20.0-27.5); Chloride 102 mmol/L (96-109); Chol/HDL Ratio 3.44 Ratio; Globulin 3.1 g/dL (1.6-3.3); Glucose 101 mg/dL (70-110); LDL Cholesterol,Calculated 76.3 mg/dL (0.0-131.0); Non-African American GFR(CKD) 83.8 (60.0-200.0); Potassium 4.7 mmol/L (3.5-5.5); Sodium 139 mmol/L (135-145); Total Protein 7.6 g/dL (6.2-8.2)
[2021-04-27 17:04] LABS: Appearance,Urine Clear (Clear); Bilirubin,Urine Negative (Negative); Blood,Urine Negative (Negative); Color,Urine Yellow (Yellow); Ketones,Urine Negative (Negative); Leukocyte Esterase,Urine Negative (Negative); Nitrite,Urine Negative (Negative); PH, Urine 6.5 (5.0-8.0); Protein,Urine Negative (Negative); Specific Gravity,Urine 1.015 (1.001-1.030); Urobilinogen,Urine 0.2 (0.2,1.0)
== END | disposition home or self-care (01) ==
LOC: LABWHC1 08:21
PROVIDERS: ATTEND Internal Medicine
DX: C61 Malignant neoplasm of prostate (principal); I10 Essential (primary) hypertension; I48.0 Paroxysmal atrial fibrillation; E78.5 Hyperlipidemia, unspecified
CPT/HCPCS: 80061; 80053; 85027; 81003; 36415; G0103

== ENCOUNTER → 2021-09-13 | Outpatient (CLI) | payer MEDICARE, OTHER | END | disposition home or self-care (01) | LOC: LABWHC1 11:10 | PROVIDERS: ATTEND Radiology Radiation Oncology | DX: Z08 Encounter for follow-up examination after completed treatment for malignant neoplasm (principal); C61 Malignant neoplasm of prostate; R35.1 Nocturia; Z85.3 Personal history of malignant neoplasm of breast; Z92.3 Personal history of irradiation | CPT/HCPCS: 36415; 84153 ==

== ENCOUNTER 2022-08-10 09:54 | Day surgery (SDC) | payer MEDICARE, OTHER ==
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
[~2022-08-10 09:54] MED LIST changes: -DEXAMETHASONE SOD PHOSPHATE 4 MG/ML 1 ML VIAL IV ONE; -LACTATED RINGERS 1,000 ML IV SCH; -LIDOCAINE 1% (10MG/ML) FOR IV START INTRADERMA PRN; +fentaNYL (PF) 50 MCG/ML 2 ML AMP IV PRN
[2022-08-10] MEDS: LACTATED RINGERS 1,000 ML IV SCH ×2 (10:16→13:14)
[2022-08-10] MEDS ORDERED: DEXAMETHASONE SOD PHOSPHATE 4 MG/ML 1 ML VIAL IVP ONE (10:40)
[2022-08-10] MEDS ORDERED: MIDAZOLAM 2 MG/2 ML VIAL ONE (11:18)
[2022-08-10] MEDS ORDERED: fentaNYL (PF) 50 MCG/ML 2 ML AMP ONE (11:18)
[2022-08-10] MEDS ORDERED: GLYCOPYRROLATE 0.2 MG/ML 2 ML VIAL ONE (11:18)
[2022-08-10] MEDS ORDERED: PROPOFOL 10 MG/ML 20 ML VIAL IV ONE (11:18)
[2022-08-10] MEDS ORDERED: LIDOCAINE 2% INJ 20 MG/ML (2 ML VIAL) ONE (11:18)
--- NOTE | 2022-08-10 12:07 | P.OP ---
Date of Procedure: 08/10/22 Preoperative Diagnosis: Left knee internal derangement Postoperative Diagnosis: Left knee posterior medial meniscal tear Procedure(s) Performed: Left knee arthroscopic partial medial meniscectomy Anesthesia: SYEDA Surgeon: Sergio Valle Estimated Blood Loss (ml): 10 Pathology: none sent Condition: stable Disposition: PACU Indications for Procedure: The patient's an 81-year-old male who presents with left knee pain along with mechanical symptoms after a recent twisting injury. Clinically and by MRI he was noted to have an acute medial meniscal tear. A discussion the risks and benefits of operative intervention versus continued conservative measures made with patient. He opted to proceed with surgery. Operative risks to include infection, neurovascular injury, development of blood clots, possible incomplete resolution of symptoms, possible worsening symptoms and need for subsequent procedures was discussed. Informed consent was obtained. Operative Findings: As below Description of Procedure: The patient was brought to the operating room, and after induction of general anesthesia examined the left knee. Collaterals were stable, Sadaf was negative, and posterior drawer was negative. The left lower extremity was prepped and draped in a normal fashion. A superior lateral portal was made through a 3 mm skin incision superior and lateral to the patella. This was used for outflow. A lateral portal was made through a 5 mm vertical skin incision lateral to the patella tendon above the joint line. Diagnostic arthroscopy was performed. On inspection of the medial compartment, and oblique tear involving the posterior horn of the medial meniscus in the white-red junction was noted. This was debrided back to stable base with straight baskets and a motorized shaver. A corresponding grade 2 chondral changes were noted involving the posterior medial femoral condyle. On inspection of the notch, the anterior cruciate ligament appeared to be intact. On inspection of the lateral compartment, no significant cartilage or meniscal pathology was noted. On inspection of the patellofemoral articulation, there is grade 2-3 chondromalacia diffusely.. The gutters were clear debris. The knee was then thoroughly irrigated. The portals were closed with Steri-Strips. A sterile dressing was applied in addition to a compression stocking. The patient was awoken from general anesthesia and transferred to recovery room in good condition. Blood loss was estimated at 10 mL. No complications were incurred.
[2022-08-10 12:19] VITALS: TEMP 97.2
[2022-08-10] MEDS ORDERED: HYDROmorphone 0.5 MG/0.5 ML SYRINGE IVP ONE ×3 (12:29→12:55)
[2022-08-10 13:36] VITALS: RESP 16
[2022-08-10] MEDS ORDERED: HYDROcodone/APAP 7.5-325MG 1 EACH TAB ONE (13:48)
[2022-08-10 14:14] VITALS: BP 137/64; PULSE 56
== END 2022-08-10 14:52 | disposition home or self-care (01) ==
LOC: OR 09:54
PROVIDERS: ATTEND Orthopaedic Surgery
DX: S83.242A Other tear of medial meniscus, current injury, left knee, initial encounter (principal); M22.42 Chondromalacia patellae, left knee; X58.XXXA Exposure to other specified factors, initial encounter; Y93.01 Activity, walking, marching and hiking; I48.91 Unspecified atrial fibrillation; I10 Essential (primary) hypertension; E78.5 Hyperlipidemia, unspecified; M19.90 Unspecified osteoarthritis, unspecified site; J18.9 Pneumonia, unspecified organism; G47.33 Obstructive sleep apnea (adult) (pediatric); Z99.89 Dependence on other enabling machines and devices; Z85.46 Personal history of malignant neoplasm of prostate; G50.0 Trigeminal neuralgia; H91.90 Unspecified hearing loss, unspecified ear; Z79.899 Other long term (current) drug therapy; Z79.01 Long term (current) use of anticoagulants
CPT/HCPCS: 29881; J2250; J1100; J0690; J2405; J3010; J2704; J1170; J2001

== ENCOUNTER → 2023-02-18 | Outpatient (CLI) | payer MEDICARE, OTHER ==
--- NOTE | 2023-02-18 15:24 | XR ---
EXAMINATION TYPE: XR chest 2V DATE OF EXAM: 02/18/2023 COMPARISON: None HISTORY: 82-year-old male E78.5 TECHNIQUE: Frontal and lateral views FINDINGS: The heart is upper limits of normal in size. There are some rounded retrocardiac opacity. Mild tortuo sity/ectasia of the thoracic aorta with mild episodic arch calcifications. Old healed fracture deform ity mid right clavicular shaft. No consolidation or pleural effusion. IMPRESSION: Borderline heart size. Old healed fracture deformity mid right clavicular shaft. No acute process see n.
== END | disposition home or self-care (01) ==
LOC: RADXRMAIN 12:53
PROVIDERS: ATTEND Internal Medicine Hematology & Oncology
DX: E78.5 Hyperlipidemia, unspecified (principal); D72.829 Elevated white blood cell count, unspecified; I48.91 Unspecified atrial fibrillation; I10 Essential (primary) hypertension
CPT/HCPCS: 71046